=== PATIENT | female | born 1995 | race Caucasian/White ===

== ENCOUNTER 2021-05-27 03:05 | Emergency (ER) | payer OTHER ==
[2021-05-27] MEDS ORDERED: KETOROLAC TROMETHAMINE 30 MG/1 ML VIAL IM ONE (03:50)
[2021-05-27 04:00] VITALS: BP 128/79; PULSE 77; TEMP 98.3; BMI 28.7
[2021-05-27] MEDS ORDERED: KETOROLAC TROMETHAMINE 30 MG/1 ML VIAL ONE (04:11)
== END 2021-05-27 04:47 | disposition home or self-care (01) ==
LOC: JER 03:05
PROC: 3E023GC Introduction of Other Therapeutic Substance into Muscle, Percutaneous Approach (ICD-10-PCS; principal; 2021-05-27)
DX: M25.562 Pain in left knee (principal)
CPT/HCPCS: 73564-TC-LT-FY; 99284-25